=== PATIENT | male | born 1975 ===

== ENCOUNTER 2023-02-07 01:07 | Outpatient (CLI) | payer OTHER, SELFPAY | END 2023-02-07 01:08 | disposition home or self-care (01) | LOC: AMB 03-13 14:25 | PROVIDERS: Visit Provider Family Medicine | DX: S99.919A Unspecified injury of unspecified ankle, initial encounter (principal); V49.9XXA Car occupant (driver) (passenger) injured in unspecified traffic accident, initial encounter; Y92.410 Unspecified street and highway as the place of occurrence of the external cause | CPT/HCPCS: A0998 ==